=== PATIENT | female | born 1990 | race Caucasian/White ===

== ENCOUNTER 2019-07-18 12:38 | Emergency (ER) | payer SELFPAY ==
[2019-07-18 12:39] VITALS: BP 136/87; PULSE 99; RESP 18; TEMP 35.9; O2SAT 100; BMI 25.4
[2019-07-18 12:51] VITALS: BP 136/87; PULSE 99; RESP 18; TEMP 35.9; O2SAT 100
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
[2019-07-18 15:33] VITALS: BP 135/78; PULSE 98; RESP 17; O2SAT 97
== END 2019-07-18 15:34 | disposition home or self-care (01) ==
LOC: ED 14:00
PROVIDERS: Emergency Provider Emergency Medicine
DX: L02.414 Cutaneous abscess of left upper limb (principal); L03.114 Cellulitis of left upper limb; F17.200 Nicotine dependence, unspecified, uncomplicated
CPT/HCPCS: 10060; 99282

== ENCOUNTER 2019-11-25 02:23 | Emergency (ER) | payer MEDICAID, SELFPAY ==
[2019-09-21 11:10] VITALS: BMI 22.8
[2019-11-25 02:25] VITALS: BP 118/65; PULSE 72; RESP 16; TEMP 36.9; O2SAT 97; BMI 27.3
--- NOTE | 2019-11-25 02:33 | US_ITS ---
HISTORY: Bleeding. Estimated gestational age clinically 18 W-4 D. RG from prior clinical workup 04/23/2020. No comparison imaging. 38 images. Findings: Transabdominal imaging: The cervix is closed measuring over 3.8 cm. Placenta is posterior and fundal. The cervix and is well away from the internal cervical os. heart motion is detected by M-mode imaging at 141 bpm. Endovaginal imaging: The cervix is closed 3.5 cm at least. Chest US/Transvaginal w/Preg US IMPRESSION: Normal. SLIUP. anatomic survey not performed. Measurements for age not performed. Cervix is closed. at 0359 Reported and signed by: Rancho Rivera MD Electronically Signed: Rancho Rivera MD at 3:58 EDT Tel , Service support ,
[2019-11-25] MEDS: 0.9% Normal Saline 1,000 ML 150 ML IV (02:57)
[2019-11-25 03:01] LABS: Absolute Lymphocyte Count 2.77 X10^3/uL (0.83-4.51); Absolute Neutrophil Count 7.6 X10^3/uL (2.0-7.7); Basophil# 0.03 X10^3/uL; Basophil% 0.3 % (0-1); Eosinophil# 0.37 X10^3/uL; Eosinophils% 3.2 % (0-5); Hematocrit 35.4 % (37-47); Lymphocyte # 2.77 X10^3/ul (4.0); Lymphocyte % 24.1 % (19-41); Mean Corp Hgb Conc 33.9 g/dL (32-36); Mean Corpuscular Hgb 28.5 pg (27.0-32.0); Mean Corpuscular Volume 84.1 fL (81-99); Mean Platelet Vol. 10.6 fl (6.2-12.0); Monocyte# 0.69 X10^3/uL; NRBC Flagged by Analyzer 0 % (0-5); Neutrophil # 7.61 X10^3/uL (2.7-7.7); Neutrophil % 66.1 % (47-70); Platelet Count 255 K/mm3 (150-450); RBC Distribution Width CV 13.2 % (11.6-14.6); Red Blood Count 4.21 M/mm3 (4.2-5.4); White Blood Count 11.5 K/mm3 (4.4-11.0)
[2019-11-25 04:14] LABS: Color, Urine Yellow (Yellow); Glucose, Dipstick Normal (Normal); Ketone-Dipstick Negative (Negative); Leukocyte Esterase-Dipstick Negative /ul (Negative); Nitrite-Dipstick Negative (Negative); Occult Blood-Urine 10 /ul (Negative); Protein-Dipstick Negative (Negative); Specific Gravity, Urine 1.015 (1.002-1.030); Urine Bilirubin Dipstick Negative (Negative); Urine Clarity Clear (Clear); Urine Urobilinogen Normal (Normal); Urine pH 6.5 (5.0 - 8.0)
[2019-11-25 04:15] LABS: Bacteria 0 SEEN /hpf (None Seen); Mucous, Urine 0 SEEN /hpf (<or=2+); White Blood Cells 0 SEEN /hpf (0-5)
--- NOTE | 2019-11-25 04:19 | ED.VISSUMM ---
- ER Visit Summary Date of Service: 11/25/19 Chief Complaint: [Vaginal bleeding] History of Present Illness: The patient is a 29 F [presents with vaginal bleeding that started this evening. Patient says she woke up to use the restroom and noted that her there was a small amount of blood when she wiped. Patient and subsequently had another episode where there was more blood but no clots. Currently she states that she feels like things have slowed down and just has minimal spotting. She denies recent intercourse or vaginal trauma. Patient is 19 weeks . Patient is G2, P1. Patient has history of heroin abuse but has not used opiates in 60 days and she is currently at a treatment facility. Patient describes a mild pelvic pressure. She denies fever. She denies urinary symptoms.] Physical Examination: [HEENT-PERRLA, EOMI. Cranial nerves II through XII grossly intact. TMs clear. Mucous membranes moist. No adenopathy. Cardiovascular-regular rate and rhythm without murmur or ectopy Lungs-clear to auscultation, chest wall stable without crepitus or subcu emphysema Abdomen-normoactive bowel sounds, soft. Patient has some mild tenderness over the suprapubic region. There is no rebound, rigidity, or cranial signs. Extremities-intact ?4, normal range of motion, normal pulses, atraumatic] Test Results: [CBC with differential showed a white count of 11.5, hemoglobin 12, hematocrit 35, platelets 255. Urinalysis was unremarkable. Blood type is a positive. heart tones were 130. Pelvic ultrasound obtained showed heart tones of 141 with a single live intrauterine . Cervical loss was closed. Placenta was in the posterior fundal region.] Emergency Department Course and Treatment: [ Established on arrival.] Treatment Plan: [Case was discussed with Alicja Farrell who is on-call for Dr. Barbara Lui. Patient has follow-up appointment scheduled in 5 days she is to keep that. At this point patient looks well and no further treatment is indicated. Advised to return if worsening abdominal pain, persistent heavy bleeding, passing clots or tissue, or condition should worsen anyway.] Disposition: [Discharged home in stable condition] Impression: [Vaginal bleeding in second trimester] This note was generated with [employer] software. It may contain incorrect words, spelling, and punctuation that were not noted in review of the chart prior to signing ED Disposition - Plan for ED Patient: Referrals: Care Physician,No Primary [Primary Care Provider] -
[2019-11-25 04:22] LABS: Red Blood Cells-Urine 0-5 SEEN /hpf (0-5); Squamous Epithelial Cells - UA 0-5 SEEN /hpf (5-10)
--- NOTE | 2019-11-25 04:22 | ED.DEP ---
ED Disposition - Plan for ED Patient: Instructions: Bleeding During Early Referrals: Care Physician,No Primary [Primary Care Provider] - Barbara Lui MD [STAFF PHYSICIAN] - 11/29/19
[2019-11-25 04:29] VITALS: PULSE 84; RESP 16
== END 2019-11-25 04:35 | disposition home or self-care (01) ==
PROVIDERS: Emergency Provider Emergency Medicine
DX: O20.9 Hemorrhage in early pregnancy, unspecified (principal); O99.332 Smoking (tobacco) complicating pregnancy, second trimester; Z72.0 Tobacco use; Z3A.19 19 weeks gestation of pregnancy
CPT/HCPCS: 76817; 81001; 85025; 86900; 86901; 96360; 96361; 99285; J7030

== ENCOUNTER 2020-01-14 20:00 | Emergency (ER) | payer MEDICAID, SELFPAY ==
[2020-01-14 20:02] VITALS: BP 146/95; PULSE 108; RESP 18; TEMP 36.8; O2SAT 98; BMI 25.4
[2020-01-14 20:04] VITALS: BP 146/96; PULSE 108; RESP 18; TEMP 36.8; O2SAT 98
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
[2020-01-14] MEDS: Acetaminophen 325 MG Tablet 650 MG PO (20:43)
[2020-01-14 21:00] VITALS: BP 133/92; PULSE 103; RESP 19; O2SAT 97
[2020-01-14 21:35] VITALS: BP 135/97; PULSE 101; RESP 18; O2SAT 99
== END 2020-01-14 21:36 | disposition home or self-care (01) ==
PROVIDERS: Emergency Provider Emergency Medicine
DX: O9A.212 Injury, poisoning and certain other consequences of external causes complicating pregnancy, second trimester (principal); R06.81 Apnea, not elsewhere classified; T40.2X1A Poisoning by other opioids, accidental (unintentional), initial encounter; S09.90XA Unspecified injury of head, initial encounter; W19.XXXA Unspecified fall, initial encounter; Y93.9 Activity, unspecified; Y92.9 Unspecified place or not applicable; Y99.9 Unspecified external cause status; O99.332 Smoking (tobacco) complicating pregnancy, second trimester; F17.200 Nicotine dependence, unspecified, uncomplicated; Z3A.00 Weeks of gestation of pregnancy not specified
CPT/HCPCS: 99284

== ENCOUNTER 2020-04-07 06:00 | Inpatient (IN) | payer MEDICAID, SELFPAY ==
[2020-04-07] VITALS (20 sets, daily range): BP systolic 100–134; BP diastolic 62–92; PULSE 58–114; RESP 16–20; TEMP 36–37.2; O2SAT 96–100; BMI 28.1
[2020-04-07 05:58] LABS: ROM Internal Control Test YES-OK TO RESULT pt. (Internal QC); ROM Patient Test POSITIVE (Negative)
[2020-04-07] MEDS: Lactated Ringers 500 ML 999 ML IV (07:09)
[2020-04-07 07:21] LABS: Absolute Lymphocyte Count 3.55 X10^3/uL (0.83-4.51); Absolute Neutrophil Count 14.4 X10^3/uL (2.0-7.7); Basophil# 0.03 X10^3/uL; Basophil% 0.2 % (0-1); Eosinophil# 0.13 X10^3/uL; Eosinophils% 0.7 % (0-5); Hematocrit 36.9 % (37-47); Hemoglobin 12.2 g/dL (12.0-15.0); Lymphocyte # 3.55 X10^3/ul (4.0); Lymphocyte % 18.1 % (19-41); Mean Corp Hgb Conc 33.1 g/dL (32-36); Mean Corpuscular Hgb 27.5 pg (27.0-32.0); Mean Corpuscular Volume 83.1 fL (81-99); Mean Platelet Vol. 10.4 fl (6.2-12.0); Monocyte# 1.38 X10^3/uL; Monocyte% 7.1 % (0-10); NRBC Flagged by Analyzer 0 % (0-5); Neutrophil # 14.39 X10^3/uL (2.7-7.7); Neutrophil % 73.4 % (47-70); Platelet Count 334 K/mm3 (150-450); RBC Distribution Width CV 13.3 % (11.6-14.6); Red Blood Count 4.44 M/mm3 (4.2-5.4); White Blood Count 19.6 K/mm3 (4.4-11.0)
[2020-04-07 07:33] LABS: Color, Urine Yellow (Yellow); Glucose, Dipstick Normal (Normal); Ketone-Dipstick Negative (Negative); Leukocyte Esterase-Dipstick 25 /ul (Negative); Nitrite-Dipstick Negative (Negative); Occult Blood-Urine Negative /ul (Negative); Protein-Dipstick Negative (Negative); Specific Gravity, Urine 1.015 (1.002-1.030); Urine Bilirubin Dipstick Negative (Negative); Urine Clarity Cloudy (Clear); Urine Urobilinogen Normal (Normal)
[2020-04-07] MEDS: Lactated Ringers 1,000 ML 999 ML IV (07:40)
[2020-04-07 07:49] LABS: Amphetamine Urine VISTA NEGATIVE (<1000 ng/mL); Barbiturate Urine VISTA NEGATIVE (< 200 ng/mL); Benzodiazepine Urine VISTA NEGATIVE (< 200 ng/mL); Cocaine Urine VISTA NEGATIVE (< 300 ng/mL); Ecstacy Urine VISTA NEGATIVE (< 500 ng/mL); Methadone Urine VISTA NEGATIVE (< 300 ng/mL); PCP Urine VISTA NEGATIVE (< 25 ng/mL); THC Urine VISTA NEGATIVE (< 50 ng/mL); Vista UDS pH Range 8
[2020-04-07 07:53] LABS: ALB/GLOB Ratio 0.6 RATIO (0.9-2.4); AST(SGOT) 43 U/L (15-37); Alanine Aminotransfer ALT/SGPT 53 U/L (13-56); Albumin, Serum 2.5 g/dL (3.2-5.0); Alkaline Phosphatase 182 U/L (45-117); Anion Gap 6 (5-15); BUN 11 mg/dL (7-18); BUN/Creat Ratio 17.7 RATIO (10-20); Calcium,Total 8.7 mg/dL (8.5-10.1); Chloride 106 mmol/L (98-107); Creatinine, Serum 0.62 mg/dL (0.55-1.02); EST Glomerular Filtration Rate 121 mL/min (>60); Est Glom Filt Rate - Afr Amer 147 mL/min (>60); Estimated Creatinine Clearance 136.27 ml/min; Globulin 4.3 g/dL (2.2-4.2); Glucose 84 mg/dL (74-106); Potassium 3.9 mmol/L (3.5-5.1); Protein, Total 6.8 g/dL (6.4-8.2); Sodium Level 135 mmol/L (136-145)
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
[2020-04-07] MEDS: Sodium Citrate/Citric Acid 30 ML UDC PO (08:37)
--- NOTE | 2020-04-07 08:40 | PCM.OPRPT ---
Delivery Classification: AWA Final RG: 04/23/20 Final RG Source: US <20 weeks Gestational age: 37 Weeks and 5 Days check airman: Unique Valadez Type of Anesthesia:: Spinal Special Medications: none Implants Used: none Date of Procedure: 04/07/20 - start 9:16 am end time 0945 Pre-Operative Diagnosis: term gestation, maternal drug abuse in , breech presentation, SROM, labor Post-Operative Diagnosis: same, live female (delivered @ 0919 04/07/20) Indications: SROM, Labor , Breech presentation Indications for : Breech Description of Procedure: Pt presented to L&D c/o SROM at 0000 on 04/07/20- pt progressed to 5cm and at that time confirmed breech presentation. pt informed of need for primary cs- agrees After informed consent was obtained the patient was taken the operating room she was given spinal anesthesia. She was then placed in the supine position. She was prepped and draped in the normal sterile fashion. Anesthesia was found to be adequate. At this time a Pfannenstiel skin incision was made with a knife was carried down to the underlying layer of the fascia. The fascial incision was then extended laterally using curved Taylor scissor. Tensions was then turned to the superior aspect of the fascial edge was grasped with 2 straight Darrion clamps tented up and the rectus muscle dissected off sharply using curved Taylor scissor. Attention was then turned to the inferior aspect where again Gonzales clamps were placed in the rectus muscles were tented up and the fascia was dissected off sharply using the curved Taylor scissor. Rectus muscles were then in the midline bluntly and peritoneum was entered bluntly. Gentle opposing traction was placed. At this time the vesicouterine peritoneum was identified. Scalpel was used to make a uterine incision in a low transverse fashion. The uterus was then entered bluntly gentle opposing traction was placed to extend this incision. meconium noted. Infant's buttocks was brought to the uterine incision was delivered atraumatically followed by the rest of infant body. Cord was clamped and cut infant was handed to the waiting nursery team. The Placenta was removed from the uterus. The uterus was then removed from the abdominal cavity. The uterus was cleared of all clots and debris using a lap. At this time the uterine incision was reapproximated using #1 Vicryl in a running locked fashion. followed by multiple figure of eight sutures to achieve hemostasis. Hemostasis was appreciated. Posterior cul-de-sac was then cleared of all clots and debris. Uterus was placed back in the abdominal cavity. Gutters were cleared of all clots and debris. Uterine incision was reevaluated and noted to be of excellent hemostasis. tanisha placed. At this time the peritoneum was grasped with Kellys reapproximated using #2 Vicryl suture in a running fashion. Fascia was then reapproximated using #1 Vicryl in a running fashion. Subcu layer was reapproximated with #2 0 plain gut suture in an interrupted fashion. Subcu layer was closed using 4-0 Monocryl in a subcu fashion. Dry sterile dressing was applied. Instrument lap needle count correct ?2. Anticipated normal postoperative course. Amniotic Membrane Rupture Type: Spontaneous Amniotic Fluid Description: Moderate meconium Placenta Disposition: [facility] Specimen(s) sent to pathology: none Drain: Farr to straight drain Fluids Replaced: 1000 Cord Entanglement: None Cord Vessel Description: 3 Vessels Esitmated Blood Loss (ml): 600 Infant Gender: Female (1 minute): 9 (5 minute): 9 Delayed cord clamping: No Antibiotic Given: Ancef 2 grams IV x1, Zithromax 500 mg/5 mL X1 Pt instructed on risks of surgery: Bleeding, Anesthesia Risks, Infection, Injury to surrounding structure(s) including bowel and bladder Complications: None - Admit VTE Documentation VTE Present on Admission: Yes VTE Mechan Device Prophylaxis: SCD's VTE Pharm Prophylaxis ordered?: No
[2020-04-07] MEDS: Cefazolin 2 GM in 0.9% Normal Saline 100 ML IV (08:41)
[2020-04-07 09:10] LABS: Group B Strep DNA By PCR Negative (Negative); Internal Control PASS; Probe Check PASS; Specimen Processing Control PASS
[2020-04-07] MEDS: Oxytocin 30 units/NS 500 ml 30 UNITS/500 ML IV.SOLN 167 UNITS IV (10:00)
--- NOTE | 2020-04-07 10:00 | NURSING ---
Pt had originally stated that she would like to breastfeed baby. After delivery pt stated she had thought about it and decided that with her drug use and Hep C she thinks it would be best to bottle feed. New entry placed by this RN for plans for feeding baby to bottle feed instead of breastfeed.
--- NOTE | 2020-04-07 10:57 | PN_ITS ---
Patient Problems: Active and Suspected Problems Heroin abuse affecting (Acute) Marijuana use (Acute) Methamphetamine abuse (Acute) Active labor at term (Acute) SROM (spontaneous rupture of membranes) (Acute) Breech presentation (Acute) History of traumatic brain injury (Acute) Custody issue (Acute) History of depression (Acute) Hepatitis C (Acute) Social isolation (Acute) History of pelvic fracture (Acute) Vitals/I&O's: Vital Signs Temp Pulse Resp BP Pulse Ox 97.9 F 85 16 125/75 H 98 04/07/20 10:30 04/07/20 10:30 04/07/20 10:30 04/07/20 10:30 04/07/20 10:30 Oxygen Delivery Method Room Air Weight: 83.915 kg Body Mass Index (BMI) 28.1 Intake and Output for Last 24 Hours 04/05/20 04/06/20 04/07/20 23:59 23:59 23:59 Intake Total 1500 / 1500 Output Total 150 / 150 Balance 1350 / 1350 Microbiology Past 72 Hours 04/07/20 06:50 Mucosa - Nose SARS-CoV-2 Antigen (Rapid) - Final Laboratory Results 04/07/20 05:15: Vag Amniotic Fld Detect POSITIVE H 04/07/20 06:50: Group B Strep DNA Negative, Specimen Comment Not Reportable 04/07/20 07:10: WBC 19.6 H, RBC 4.44, Hgb 12.2, Hct 36.9 L, MCV 83.1, MCH 27.5, MCHC 33.1, RDW Std Deviation 40.0, RDW Coeff of Eugenie 13.3, Plt Count 334, MPV 10.4, Immature Gran % (Auto) 0.500, Neut % (Auto) 73.4 H, Lymph % (Auto) 18.1 L, [place] % (Auto) 7.1, Eos % (Auto) 0.7, Baso % (Auto) 0.2, Absolute Neuts (auto) 14.4 H, Absolute Lymphs (auto) 3.55, Nucleated RBC % 0 04/07/20 07:10: Blood Type A POSITIVE, Antibody Screen NEGATIVE 04/07/20 07:10: Sodium 135 L, Potassium 3.9, Chloride 106, Carbon Dioxide 23.0, Anion Gap 6, BUN 11, Creatinine 0.62, Estim Creat Clear Calc 136.27, Est GFR (MDRD) Af Amer 147, Est GFR (MDRD) Non-Af 121, BUN/Creatinine Ratio 17.7, Glucose 84, Calcium 8.7, Total Bilirubin 0.30, AST 43 H, ALT 53, Alkaline Phosphatase 182 H, Total Protein 6.8, Albumin 2.5 L, Globulin 4.3 H, Albumin/Globulin Ratio 0.6 L 04/07/20 07:10: HCV RNA Quant (PCR) Pending 04/07/20 07:15: Urine Color Yellow, Urine Clarity Cloudy, Urine pH 9.0, Ur Specific [place] 1.015, Urine Protein Negative, Urine Glucose (UA) Normal, Urine Ketones Negative, Urine Occult Blood Negative, Urine Nitrite Negative, Urine Bilirubin Negative, Urine Urobilinogen Normal, Ur Leukocyte Esterase 25 H 04/07/20 07:15: Urine Opiates Screen NEGATIVE, Urine Methadone Screen NEGATIVE, Ur Barbiturates Screen NEGATIVE, Ur Phencyclidine Scrn NEGATIVE, Ur Amphetamines Screen NEGATIVE, U Methamphetamin-MDMA NEGATIVE, U Benzodiazepines Scrn NEGATIVE, Urine Cocaine Screen NEGATIVE, U Cannabinoids Screen NEGATIVE, Ur Drug Screen Comment Current Medications Acetaminophen (Acetaminophen 500 Mg Tablet) 1,000 mg PO Q6 STEFANY Bisacodyl (Bisacodyl 10 Mg Suppository) 10 mg RECTAL UD PRN PRN Reason: If no BM Enoxaparin Sodium (Enoxaparin 40 Mg/0.4 Ml Syringe) 40 mg SC DAILY [facility] Hydrocortisone (Hydrocortisone 2.5% Crm) 1 applic TOPICAL TID PRN PRN; Protocol PRN Reason: Discomfort Lactated Ringer's () 1,000 mls @ 100 mls/hr IV .Q10H [facility] Oxytocin/Sodium Chloride () 30 units in 500 mls @ 167 mls/hr IV .Q3H [facility] Stop: 04/07/20 12:44 Ibuprofen (Ibuprofen 600 Mg Tablet) 600 mg PO Q6 [facility] Ketorolac Tromethamine (Ketorolac 30 Mg/Ml Syringe) 30 mg IV Q6H [facility] Stop: 04/08/20 03:46 Methylergonovine Maleate (Methylergonovine 0.2 Mg/Ml Ampul) 0.2 mg IM X1 PRN PRN Reason: Uterine Atony Ondansetron HCl (Ondansetron 4 Mg/2 Ml Vial) 4 mg IV Q4H PRN PRN PRN Reason: Nausea Prochlorperazine Edisylate (Prochlorperazine 10 Mg/2 Ml Vial) 10 mg IV Q6H PRN PRN PRN Reason: NAUSEA Senna/Docusate Sodium (Senna/Docusate Sodium 1 Tablet) 1 - 2 tablet PO DAILY STEF[facility] Simethicone (Simethicone 80 Mg Tablet) 80 mg PO PCHS PRN PRN Reason: Indigestion/stomach pain Sodium Chloride (0.9% Saline Lock 10 Ml Syringe) 5 - 15 ml IV UD PRN PRN Reason: SALINE FLUSH STROKE Vital Signs/Narrative: Vital Signs Temp Pulse Resp BP Pulse Ox 04/07/20 10:30 97.9 F 85 16 125/75 H 98 04/07/20 10:15 96.8 F L 77 16 113/69 99 04/07/20 10:00 96.8 F L 85 16 113/74 99 04/07/20 08:26 98.0 F 74 16 120/80 99 04/07/20 08:03 74 120/80 04/07/20 08:02 98.0 F 99 Medical Necessity - Tobacco Use Smoking Status: Current every day smoker Assessment/Plan All Active Problems Transaminitis (Acute) Substance abuse (Acute) (Acute) Subchorionic hematoma in first trimester (Acute) Heroin abuse affecting (Acute) Marijuana use (Acute) Methamphetamine abuse (Acute) Active labor at term (Acute) SROM (spontaneous rupture of membranes) (Acute) Breech presentation (Acute) History of traumatic brain injury (Acute) Custody issue (Acute) History of depression (Acute) Hepatitis C (Acute) Social isolation (Acute) History of pelvic fracture (Acute) Cellulitis (Acute)
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
[2020-04-07] MEDS: Senna/Docusate Sodium 1 Tablet PO (12:22)
[2020-04-07] MEDS: Acetaminophen 500 MG Tablet 1000 MG PO ×3 (12:23→23:40)
[2020-04-07] MEDS: Lactated Ringers 1,000 ML 100 ML IV (13:00)
--- NOTE | 2020-04-07 13:44 | NURSING ---
Pt very painful, called Christelle WASHINGTON to update that pt did not receive duramorph during and the only pain meds ordered are Tylenol and toradol. This RN informed CNM that withdrawl assessments are done every hour and pt cannot receive subutex until score is greater than 8, pt currently at 5. The plan at this time is to do next assessment at 1415 and if not able to receive subutex at that time then will get pain meds ordered.
--- NOTE | 2020-04-07 14:07 | NURSING ---
Alcira WASHINGTON called back in after talking with Dr Espinoza. Plan at this time is to start pt on Oxyir 5-10 mg Q4H and get her pain under control and then begin her on subutex tomorrow once pain is better controlled. Plan discussed with pt and pt okay with plan.
[2020-04-07] MEDS: oxyCODONE 5 MG Tablet PO ×3 (14:11→23:40)
--- NOTE | 2020-04-07 14:46 | NURSING ---
call placed to [place], hospitalist. Informed that OB's started pt on pain medicine for first 24 hours since pts pain is uncontrolled will start subutex tomorrow once pain more controlled. Ok to hold withdrawl assessments (COWS and CINA) until tomorrow once planning to start Subutex.
[2020-04-07] MEDS: Ketorolac 30 MG/ML Syringe IV ×2 (16:00→21:55)
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
[2020-04-07] MEDS: 0.9% Saline Lock 10 ML Syringe IV (21:55)
[2020-04-07] MEDS: Enoxaparin 40 MG/0.4 ML Syringe SC (22:04)
[2020-04-08] VITALS (9 sets, daily range): BP systolic 119–132; BP diastolic 66–78; PULSE 58–95; RESP 16–18; TEMP 35.5–36.7; O2SAT 98–100
--- NOTE | 2020-04-08 03:38 | NURSING ---
Bedside report received from Dl Martinez RN. This RN will assume care of this mother and at this time.
[2020-04-08] MEDS: Ketorolac 30 MG/ML Syringe IV (03:44)
[2020-04-08] MEDS: 0.9% Saline Lock 10 ML Syringe IV ×2 (03:45→09:41)
[2020-04-08] MEDS: Acetaminophen 500 MG Tablet 1000 MG PO ×4 (05:34→23:49)
--- NOTE | 2020-04-08 05:48 | NURSING ---
2 RNs and lab attempted to draw CBC. Unable to draw blood for CBC at this time.
[2020-04-08 09:37] LABS: Hematocrit 34.2 % (37-47); Hemoglobin 10.9 g/dL (12.0-15.0); Mean Corp Hgb Conc 31.9 g/dL (32-36); Mean Corpuscular Hgb 27.1 pg (27.0-32.0); Mean Corpuscular Volume 85.1 fL (81-99); Mean Platelet Vol. 10.2 fl (6.2-12.0); Platelet Count 282 K/mm3 (150-450); RBC Distribution Width CV 13.4 % (11.6-14.6); Red Blood Count 4.02 M/mm3 (4.2-5.4); White Blood Count 24.1 K/mm3 (4.4-11.0)
[2020-04-08] MEDS: Ibuprofen 600 MG Tablet PO ×3 (10:14→21:44)
[2020-04-08] MEDS: Buprenorphine HCl 2 MG TAB.SUBL SL ×2 (10:15→18:17)
[2020-04-08] MEDS: Enoxaparin 40 MG/0.4 ML Syringe SC (10:15)
[2020-04-08] MEDS: Senna/Docusate Sodium 1 Tablet PO (10:15)
--- NOTE | 2020-04-08 10:57 | PN_ITS ---
Patient Problems: Active and Suspected Problems Transaminitis (Acute) Substance abuse (Acute) (Acute) Subchorionic hematoma in first trimester (Acute) Heroin abuse affecting (Acute) Active labor at term (Acute) SROM (spontaneous rupture of membranes) (Acute) Breech presentation (Acute) Social isolation (Acute) Cellulitis (Acute) Reason for Visit: Chronic opiate dependence at risk for withdrawal Status post section on 04/07/2020 Subjective: The patient is a 29 year old who is 2 para 1 currently at 37 weeks of gestation who presented to the labor and delivery department with spontaneous rupture of membrane. Patient's baby was found to be in breech. Decision was made for patient to undergo emergency . Patient has history of polysubstance abuse with opioid and methamphetamine use. Patient last heroin use was a day prior to her presentation. The hospitalist service was consulted to assist with management of patient opioid dependence 04/08/2020; patient seen denies any leg pain no leg cramps. No vomiting. Objective: GENERAL: cooperative HEENT: Atraumatic; EYES; Anicteric, Normal Conjunctiva NECK; supple, normal thyroid, RESPIRATORY: Diminished to auscultation CARDIOVASCULAR: Regular S1 S2, GI: soft, normoactive bowel sounds, EXTREMITIES: No edema, no clubbing, MUSCULOSKELETAL: no muscle waisting NEURO: Awake; no lateralizing signs. SKIN: No Rash PSYCH; Flat affect Vitals/I&O's: Vital Signs Temp Pulse Resp BP Pulse Ox 97.0 F L 59 L 16 121/71 H 98 04/08/20 08:21 04/08/20 08:21 04/08/20 08:21 04/08/20 08:21 04/08/20 08:21 Oxygen Delivery Method Room Air Weight: 83.915 kg Body Mass Index (BMI) 28.1 Intake and Output for Last 24 Hours 04/06/20 04/07/20 04/08/20 23:59 23:59 23:59 Intake Total 3790 / 3790 Output Total 525 / 525 400 / 400 Balance 3265 / 3265 -400 / -400 Microbiology Past 72 Hours 04/07/20 06:50 Mucosa - Nose SARS-CoV-2 Antigen (Rapid) - Final Laboratory Results 04/08/20 09:30: WBC 24.1 H, RBC 4.02 L, Hgb 10.9 L, Hct 34.2 L, MCV 85.1, MCH 27.1, MCHC 31.9 L, RDW Std Deviation 42.0, RDW Coeff of Eugenie 13.4, Plt Count 282, MPV 10.2 Current Medications Acetaminophen (Acetaminophen 500 Mg Tablet) 1,000 mg PO Q6 [facility] Last Admin: 04/08/20 05:34 Dose: 1,000 mg Documented by: Bisacodyl (Bisacodyl 10 Mg Suppository) 10 mg RECTAL UD PRN PRN Reason: If no BM Buprenorphine HCl (Buprenorphine Hcl 2 Mg Tab.Subl) 4 mg SL Q8H [facility]; Taper Stop: 04/11/20 10:29 Last Admin: 04/08/20 10:15 Dose: 4 mg Documented by: Clonidine (Clonidine Hcl 0.1 Mg Tablet) 0.1 mg PO Q8H PRN PRN PRN Reason: RESTLESSNESS Dicyclomine HCl (Dicyclomine 10 Mg Capsule) 20 mg PO Q6H PRN PRN PRN Reason: Abdominal Discomfort Enoxaparin Sodium (Enoxaparin 40 Mg/0.4 Ml Syringe) 40 mg SC DAILY [facility] Last Admin: 04/08/20 10:15 Dose: 40 mg Documented by: Gabapentin (Gabapentin 300 Mg Capsule) 300 mg PO Q8H PRN PRN PRN Reason: moderate to severe anxiety Hydrocortisone (Hydrocortisone 2.5% Crm) 1 applic TOPICAL TID PRN PRN; Protocol PRN Reason: Discomfort Hydroxyzine Pamoate (Hydroxyzine Melinda 25 Mg Capsule) 50 mg PO Q6H PRN PRN PRN Reason: mild anxiety Ibuprofen (Ibuprofen 600 Mg Tablet) 600 mg PO Q6H [facility] Last Admin: 04/08/20 10:14 Dose: 600 mg Documented by: Loperamide HCl (Loperamide 2 Mg Capsule) 2 mg PO Q4H PRN PRN PRN Reason: LOOSE STOOLS Methocarbamol (Methocarbamol 750 Mg Tablet) 1,500 mg PO Q6H PRN PRN PRN Reason: MUSCLE SPASM Methylergonovine Maleate (Methylergonovine 0.2 Mg/Ml Ampul) 0.2 mg IM X1 PRN PRN Reason: Uterine Atony Nicotine (Nicotine 21 Mg Patch) 21 mg TD DAILY [facility] Last Admin: 04/08/20 10:16 Dose: Not Given Documented by: Ondansetron HCl (Ondansetron 4 Mg/2 Ml Vial) 4 mg IV Q4H PRN PRN PRN Reason: Nausea Ondansetron HCl (Ondansetron 8 Mg Tablet) 8 mg PO Q8H PRN PRN PRN Reason: NAUSEA Oxycodone HCl (Oxycodone 5 Mg Tablet) 5 - 10 mg PO Q4H PRN PRN PRN Reason: Pain Score 6-10 Last Admin: 04/07/20 23:40 Dose: 10 mg Documented by: Prochlorperazine Edisylate (Prochlorperazine 10 Mg/2 Ml Vial) 10 mg IV Q6H PRN PRN PRN Reason: NAUSEA Senna/Docusate Sodium (Senna/Docusate Sodium 1 Tablet) 1 - 2 tablet PO DAILY [facility] Last Admin: 04/08/20 10:15 Dose: 1 tablet Documented by: Simethicone (Simethicone 80 Mg Tablet) 80 mg PO PCHS PRN PRN Reason: Indigestion/stomach pain Last Admin: 04/07/20 19:00 Dose: 80 mg Documented by: Sodium Chloride (0.9% Saline Lock 10 Ml Syringe) 5 - 15 ml IV UD PRN PRN Reason: SALINE FLUSH Last Admin: 04/08/20 09:41 Dose: 10 ml Documented by: Trazodone HCl (Trazodone 100 Mg Tablet) 100 mg PO QHS PRN PRN PRN Reason: INSOMNIA STROKE Vital Signs/Narrative: Vital Signs Temp Pulse Resp BP BP Pulse Ox 04/08/20 08:21 97.0 F L 59 L 16 121/71 H 98 04/08/20 08:20 97.0 F L 04/08/20 08:19 59 L 121/71 H Medical Necessity - Tobacco Use Smoking Status: Current every day smoker Assessment/Plan All Active Problems Transaminitis (Acute) Substance abuse (Acute) (Acute) Subchorionic hematoma in first trimester (Acute) Heroin abuse affecting (Acute) Active labor at term (Acute) SROM (spontaneous rupture of membranes) (Acute) Breech presentation (Acute) Social isolation (Acute) Cellulitis (Acute) The patient is a 29 year old who is 2 para 1 currently at 37 weeks of gestation who presented to the labor and delivery department with spontaneous rupture of membrane. Patient's baby was found to be in breech. Decision was made for patient to undergo emergency . Patient has history of polysubstance abuse with opioid and methamphetamine use. Patient last heroin use was a day prior to her presentation. The hospitalist service was consulted to assist with management of patient opioid dependence 1. Status post section ?presented to the labor and delivery department with spontaneous rupture of membrane. Patient's baby was found to be in breech. Decision was made for patient to undergo emergency 2. Chronic opiate dependence ?With significant risk for opioid withdrawal patient was placed on Subutex for medical stabilization in addition to other adjuvant therapy for symptomatic management - 04/08/2020; patient seen denies any leg pain no leg cramps. No vomiting. 3. Polysubstance abuse ?Including opioids and methamphetamine. Counseled on cessation 4. Chronic hep C ?Patient to follow-up with PCP for initiation of treatment following discharge 5. Tobacco dependence - Counseled on cessation, offered nicotine patch for tobacco cravings 6. DVT prophylaxis ?Deferred to primary service Inpatient E&M: 11163 Subs Hosp L2
--- NOTE | 2020-04-08 13:43 | PCM.PN.OB ---
Patient Problems: Active and Suspected Problems Transaminitis (Acute) Substance abuse (Acute) (Acute) Subchorionic hematoma in first trimester (Acute) Heroin abuse affecting (Acute) Active labor at term (Acute) SROM (spontaneous rupture of membranes) (Acute) Breech presentation (Acute) Social isolation (Acute) Cellulitis (Acute) Subjective: Doing well. Up and out of bed and ambulating. Taking PO without difficulty. Voiding and passing flatus. Pain controlled. Subutex dose this am and doing well. Denies any headache, visual changes, chest pain shortness of breath, or increased vaginal bleeding. - Physical Exam Vitals/I&O's: Vital Signs Temp Pulse Resp BP Pulse Ox 97.0 F L 59 L 16 121/71 H 98 04/08/20 08:21 04/08/20 08:21 04/08/20 08:21 04/08/20 08:21 04/08/20 08:21 Oxygen Delivery Method Room Air Weight: 185 lb Body Mass Index (BMI) 28.1 Intake and Output for Last 24 Hours 04/06/20 04/07/20 04/08/20 23:59 23:59 23:59 Intake Total 3790 / 3790 Output Total 525 / 525 400 / 400 Balance 3265 / 3265 -400 / -400 General: Alert, Oriented x3, Cooperative HEENT: Atraumatic, Normocephalic Neck: Trachea Midline Lungs: Clear to auscultation, Normal air movement, No rhonchi, No wheeze Cardiovascular: Regular rate, Regular Rhythm, No murmurs Abdomen: Bowel Sounds Present, Soft - Fundus firm 2 under U. Dressing intact, small amount of dry blood . Extremities: No edema Psych/Mental Status: Normal Affect, Appropriate Microbiology Past 72 Hours 04/07/20 06:50 Mucosa - Nose SARS-CoV-2 Antigen (Rapid) - Final Laboratory Results 04/08/20 09:30: WBC 24.1 H, RBC 4.02 L, Hgb 10.9 L, Hct 34.2 L, MCV 85.1, MCH 27.1, MCHC 31.9 L, RDW Std Deviation 42.0, RDW Coeff of Eugenie 13.4, Plt Count 282, MPV 10.2 Current Medications Acetaminophen (Acetaminophen 500 Mg Tablet) 1,000 mg PO Q6 [facility] Last Admin: 04/08/20 12:45 Dose: 1,000 mg Documented by: Bisacodyl (Bisacodyl 10 Mg Suppository) 10 mg RECTAL UD PRN PRN Reason: If no BM Buprenorphine HCl (Buprenorphine Hcl 2 Mg Tab.Subl) 4 mg SL Q8H [facility]; Taper Stop: 04/11/20 10:29 Last Admin: 04/08/20 10:15 Dose: 4 mg Documented by: Clonidine (Clonidine Hcl 0.1 Mg Tablet) 0.1 mg PO Q8H PRN PRN PRN Reason: RESTLESSNESS Dicyclomine HCl (Dicyclomine 10 Mg Capsule) 20 mg PO Q6H PRN PRN PRN Reason: Abdominal Discomfort Enoxaparin Sodium (Enoxaparin 40 Mg/0.4 Ml Syringe) 40 mg SC DAILY [facility] Last Admin: 04/08/20 10:15 Dose: 40 mg Documented by: Gabapentin (Gabapentin 300 Mg Capsule) 300 mg PO Q8H PRN PRN PRN Reason: moderate to severe anxiety Hydrocortisone (Hydrocortisone 2.5% Crm) 1 applic TOPICAL TID PRN PRN; Protocol PRN Reason: Discomfort Hydroxyzine Pamoate (Hydroxyzine Melinda 25 Mg Capsule) 50 mg PO Q6H PRN PRN PRN Reason: mild anxiety Ibuprofen (Ibuprofen 600 Mg Tablet) 600 mg PO Q6H [facility] Last Admin: 04/08/20 10:14 Dose: 600 mg Documented by: Loperamide HCl (Loperamide 2 Mg Capsule) 2 mg PO Q4H PRN PRN PRN Reason: LOOSE STOOLS Methocarbamol (Methocarbamol 750 Mg Tablet) 1,500 mg PO Q6H PRN PRN PRN Reason: MUSCLE SPASM Methylergonovine Maleate (Methylergonovine 0.2 Mg/Ml Ampul) 0.2 mg IM X1 PRN PRN Reason: Uterine Atony Nicotine (Nicotine 21 Mg Patch) 21 mg TD DAILY [facility] Last Admin: 04/08/20 10:16 Dose: Not Given Documented by: Ondansetron HCl (Ondansetron 4 Mg/2 Ml Vial) 4 mg IV Q4H PRN PRN PRN Reason: Nausea Ondansetron HCl (Ondansetron 8 Mg Tablet) 8 mg PO Q8H PRN PRN PRN Reason: NAUSEA Oxycodone HCl (Oxycodone 5 Mg Tablet) 5 - 10 mg PO Q4H PRN PRN PRN Reason: Pain Score 6-10 Last Admin: 04/07/20 23:40 Dose: 10 mg Documented by: Prochlorperazine Edisylate (Prochlorperazine 10 Mg/2 Ml Vial) 10 mg IV Q6H PRN PRN PRN Reason: NAUSEA Senna/Docusate Sodium (Senna/Docusate Sodium 1 Tablet) 1 - 2 tablet PO DAILY [facility] Last Admin: 04/08/20 10:15 Dose: 1 tablet Documented by: Simethicone (Simethicone 80 Mg Tablet) 80 mg PO PCHS PRN PRN Reason: Indigestion/stomach pain Last Admin: 04/07/20 19:00 Dose: 80 mg Documented by: Sodium Chloride (0.9% Saline Lock 10 Ml Syringe) 5 - 15 ml IV UD PRN PRN Reason: SALINE FLUSH Last Admin: 04/08/20 09:41 Dose: 10 ml Documented by: Trazodone HCl (Trazodone 100 Mg Tablet) 100 mg PO QHS PRN PRN PRN Reason: INSOMNIA Medical Necessity - Tobacco Use Smoking Status: Current every day smoker Assessment/Plan All Active Problems Transaminitis (Acute) Substance abuse (Acute) (Acute) Subchorionic hematoma in first trimester (Acute) Heroin abuse affecting (Acute) Active labor at term (Acute) SROM (spontaneous rupture of membranes) (Acute) Breech presentation (Acute) Social isolation (Acute) Cellulitis (Acute) A:POD #1 Primary Section Substance Abuse P: 1) Routine care 2) Subutex for withdrawal management, covered by medicine 3) Pain management 4) declines nicotine patch, leaving floor for smoking AMA. 5) Baby remains in room at this time. 6) Hgb stable.
[2020-04-09] VITALS (10 sets, daily range): BP systolic 109–132; BP diastolic 71–83; PULSE 56–96; RESP 16–18; TEMP 35.9–36.6; O2SAT 97–100
[2020-04-09] MEDS: Buprenorphine HCl 2 MG TAB.SUBL SL ×3 (02:18→18:41)
[2020-04-09] MEDS: Ibuprofen 600 MG Tablet PO ×4 (03:55→22:09)
[2020-04-09] MEDS: Acetaminophen 500 MG Tablet 1000 MG PO ×3 (05:50→18:40)
--- NOTE | 2020-04-09 07:38 | PCM.PN.OB ---
Patient Problems: Active and Suspected Problems Transaminitis (Acute) Substance abuse (Acute) (Acute) Subchorionic hematoma in first trimester (Acute) Heroin abuse affecting (Acute) Active labor at term (Acute) SROM (spontaneous rupture of membranes) (Acute) Breech presentation (Acute) Social isolation (Acute) Cellulitis (Acute) Subjective: Patient is doing well this morning. Pain well controlled. Denies lightheadedness, dizziness, chest pain, shortness of breath, leg pain. Lochia normal. Ambulating and voiding without difficulty. Passing gas. Tolerating regular diet without nausea or vomiting. - Physical Exam Vitals/I&O's: Vital Signs Temp Pulse Resp BP Pulse Ox 97.3 F L 96 18 132/83 H 99 04/09/20 02:20 04/09/20 02:20 04/09/20 02:20 04/09/20 02:20 04/08/20 14:14 Oxygen Delivery Method Room Air Weight: 185 lb Body Mass Index (BMI) 28.1 Intake and Output for Last 24 Hours 04/07/20 04/08/20 04/09/20 23:59 23:59 23:59 Intake Total 3790 / 3790 Output Total 525 / 525 400 / 400 Balance 3265 / 3265 -400 / -400 General: Alert, No apparent distress Abdomen: Soft, Non Tender, Non-Distended, - - dressing in place Extremities: No edema, No Calf Tenderness Skin: No rashes Neurological: Neuro grossly intact Psych/Mental Status: Normal Affect, Appropriate Microbiology Past 72 Hours 04/07/20 06:50 Mucosa - Nose SARS-CoV-2 Antigen (Rapid) - Final Laboratory Results 04/08/20 09:30: WBC 24.1 H, RBC 4.02 L, Hgb 10.9 L, Hct 34.2 L, MCV 85.1, MCH 27.1, MCHC 31.9 L, RDW Std Deviation 42.0, RDW Coeff of Eugenie 13.4, Plt Count 282, MPV 10.2 Current Medications Acetaminophen (Acetaminophen 500 Mg Tablet) 1,000 mg PO Q6 [facility] Last Admin: 04/09/20 05:50 Dose: 1,000 mg Documented by: Bisacodyl (Bisacodyl 10 Mg Suppository) 10 mg RECTAL UD PRN PRN Reason: If no BM Buprenorphine HCl (Buprenorphine Hcl 2 Mg Tab.Subl) 4 mg SL Q8H [facility]; Taper Stop: 04/11/20 10:29 Last Admin: 04/09/20 02:18 Dose: 4 mg Documented by: Clonidine (Clonidine Hcl 0.1 Mg Tablet) 0.1 mg PO Q8H PRN PRN PRN Reason: RESTLESSNESS Dicyclomine HCl (Dicyclomine 10 Mg Capsule) 20 mg PO Q6H PRN PRN PRN Reason: Abdominal Discomfort Enoxaparin Sodium (Enoxaparin 40 Mg/0.4 Ml Syringe) 40 mg SC DAILY [facility] Last Admin: 04/08/20 10:15 Dose: 40 mg Documented by: Gabapentin (Gabapentin 300 Mg Capsule) 300 mg PO Q8H PRN PRN PRN Reason: moderate to severe anxiety Hydrocortisone (Hydrocortisone 2.5% Crm) 1 applic TOPICAL TID PRN PRN; Protocol PRN Reason: Discomfort Hydroxyzine Pamoate (Hydroxyzine Melinda 25 Mg Capsule) 50 mg PO Q6H PRN PRN PRN Reason: mild anxiety Ibuprofen (Ibuprofen 600 Mg Tablet) 600 mg PO Q6H [facility] Last Admin: 04/09/20 03:55 Dose: 600 mg Documented by: Loperamide HCl (Loperamide 2 Mg Capsule) 2 mg PO Q4H PRN PRN PRN Reason: LOOSE STOOLS Methocarbamol (Methocarbamol 750 Mg Tablet) 1,500 mg PO Q6H PRN PRN PRN Reason: MUSCLE SPASM Methylergonovine Maleate (Methylergonovine 0.2 Mg/Ml Ampul) 0.2 mg IM X1 PRN PRN Reason: Uterine Atony Nicotine (Nicotine 21 Mg Patch) 21 mg TD DAILY [facility] Last Admin: 04/08/20 10:16 Dose: Not Given Documented by: Ondansetron HCl (Ondansetron 4 Mg/2 Ml Vial) 4 mg IV Q4H PRN PRN PRN Reason: Nausea Ondansetron HCl (Ondansetron 8 Mg Tablet) 8 mg PO Q8H PRN PRN PRN Reason: NAUSEA Oxycodone HCl (Oxycodone 5 Mg Tablet) 5 - 10 mg PO Q4H PRN PRN PRN Reason: Pain Score 6-10 Last Admin: 04/07/20 23:40 Dose: 10 mg Documented by: Prochlorperazine Edisylate (Prochlorperazine 10 Mg/2 Ml Vial) 10 mg IV Q6H PRN PRN PRN Reason: NAUSEA Senna/Docusate Sodium (Senna/Docusate Sodium 1 Tablet) 1 - 2 tablet PO DAILY [facility] Last Admin: 04/08/20 10:15 Dose: 1 tablet Documented by: Simethicone (Simethicone 80 Mg Tablet) 80 mg PO PCHS PRN PRN Reason: Indigestion/stomach pain Last Admin: 04/07/20 19:00 Dose: 80 mg Documented by: Sodium Chloride (0.9% Saline Lock 10 Ml Syringe) 5 - 15 ml IV UD PRN PRN Reason: SALINE FLUSH Last Admin: 04/08/20 09:41 Dose: 10 ml Documented by: Trazodone HCl (Trazodone 100 Mg Tablet) 100 mg PO QHS PRN PRN PRN Reason: INSOMNIA Medical Necessity - Tobacco Use Smoking Status: Current every day smoker Assessment/Plan All Active Problems Transaminitis (Acute) Substance abuse (Acute) (Acute) Subchorionic hematoma in first trimester (Acute) Heroin abuse affecting (Acute) Active labor at term (Acute) SROM (spontaneous rupture of membranes) (Acute) Breech presentation (Acute) Social isolation (Acute) Cellulitis (Acute) POD#2 s/p PLTCS for SROM and breech presentation - Pain well controlled - Baby in room currently - VSS. Pt denies pre e symptoms - Appreciate medicine assistance with Subutex management - Dispo: Routine PO care
[2020-04-09] MEDS: Senna/Docusate Sodium 1 Tablet PO (10:11)
[2020-04-09] MEDS: Enoxaparin 40 MG/0.4 ML Syringe SC (11:45)
[2020-04-09 20:07] LABS: HCV Quant. RNA PCR 338000 IU/mL (.)
[2020-04-09 20:18] LABS: HCV log 10 5.529 (.)
[2020-04-10] MEDS: Acetaminophen 500 MG Tablet 1000 MG PO ×4 (00:15→18:55)
[2020-04-10 00:17] VITALS: BP 117/79; PULSE 66; RESP 14; TEMP 36.6; O2SAT 97
[2020-04-10] MEDS: Buprenorphine HCl 2 MG TAB.SUBL SL ×3 (02:42→22:43)
[2020-04-10] MEDS: Ibuprofen 600 MG Tablet PO ×4 (05:01→22:42)
[2020-04-10 05:03] VITALS: BP 135/74; PULSE 77; RESP 16; TEMP 36.7; O2SAT 98
--- NOTE | 2020-04-10 08:17 | PN.OBGYN_ITS ---
Patient Problems: Active and Suspected Problems Transaminitis (Acute) Substance abuse (Acute) (Acute) Subchorionic hematoma in first trimester (Acute) Heroin abuse affecting (Acute) Active labor at term (Acute) SROM (spontaneous rupture of membranes) (Acute) Breech presentation (Acute) Social isolation (Acute) Cellulitis (Acute) Subjective: Patient seen at bedside, doing well. Patient reports good pain control. Mild lochia. Bottlefeeding. Patient reports no symptoms of withdrawal. She states that she has family that is going to help her and her boyfriend get out of [place] and remain sober. Patient currently on Suboxone initiated by medicine service. - Physical Exam Vitals/I&O's: Vital Signs Temp Pulse Resp BP Pulse Ox 98.0 F 77 16 135/74 H 98 04/10/20 05:03 04/10/20 05:03 04/10/20 05:03 04/10/20 05:03 04/10/20 05:03 Oxygen Delivery Method Room Air Weight: 83.915 kg Body Mass Index (BMI) 28.1 Intake and Output for Last 24 Hours 04/08/20 04/09/20 04/10/20 23:59 23:59 23:59 Output Total 400 / 400 Balance -400 / -400 General: Alert, Oriented x3 Abdomen: Soft, Non-Distended, Passing Flatus, - - dressing dry and intact. fundus firm Extremities: No Calf Tenderness Musculoskeletal: No Tenderness to Palpation of Joints or Extremities Microbiology Past 72 Hours 04/07/20 06:50 Mucosa - Nose SARS-CoV-2 Antigen (Rapid) - Final Laboratory Results 04/07/20 07:10: HCV RNA Quant (PCR) [id number], HCV RNA (PCR) IU log10 5.529, HCV RNA PCR Test Info Comment Current Medications Acetaminophen (Acetaminophen 500 Mg Tablet) 1,000 mg PO Q6 [facility] Last Admin: 04/10/20 06:01 Dose: 1,000 mg Documented by: Bisacodyl (Bisacodyl 10 Mg Suppository) 10 mg RECTAL UD PRN PRN Reason: If no BM Buprenorphine HCl (Buprenorphine Hcl 2 Mg Tab.Subl) 2 mg SL Q8H [facility]; Taper Stop: 04/11/20 10:29 Last Admin: 04/10/20 02:42 Dose: 2 mg Documented by: Clonidine (Clonidine Hcl 0.1 Mg Tablet) 0.1 mg PO Q8H PRN PRN PRN Reason: RESTLESSNESS Dicyclomine HCl (Dicyclomine 10 Mg Capsule) 20 mg PO Q6H PRN PRN PRN Reason: Abdominal Discomfort Enoxaparin Sodium (Enoxaparin 40 Mg/0.4 Ml Syringe) 40 mg SC DAILY [facility] Last Admin: 04/09/20 11:45 Dose: 40 mg Documented by: Gabapentin (Gabapentin 300 Mg Capsule) 300 mg PO Q8H PRN PRN PRN Reason: moderate to severe anxiety Hydrocortisone (Hydrocortisone 2.5% Crm) 1 applic TOPICAL TID PRN PRN; Protocol PRN Reason: Discomfort Hydroxyzine Pamoate (Hydroxyzine Melinda 25 Mg Capsule) 50 mg PO Q6H PRN PRN PRN Reason: mild anxiety Ibuprofen (Ibuprofen 600 Mg Tablet) 600 mg PO Q6H [facility] Last Admin: 04/10/20 05:01 Dose: 600 mg Documented by: Loperamide HCl (Loperamide 2 Mg Capsule) 2 mg PO Q4H PRN PRN PRN Reason: LOOSE STOOLS Methocarbamol (Methocarbamol 750 Mg Tablet) 1,500 mg PO Q6H PRN PRN PRN Reason: MUSCLE SPASM Methylergonovine Maleate (Methylergonovine 0.2 Mg/Ml Ampul) 0.2 mg IM X1 PRN PRN Reason: Uterine Atony Nicotine (Nicotine 21 Mg Patch) 21 mg TD DAILY [facility] Last Admin: 04/09/20 10:53 Dose: Not Given Documented by: Ondansetron HCl (Ondansetron 4 Mg/2 Ml Vial) 4 mg IV Q4H PRN PRN PRN Reason: Nausea Ondansetron HCl (Ondansetron 8 Mg Tablet) 8 mg PO Q8H PRN PRN PRN Reason: NAUSEA Oxycodone HCl (Oxycodone 5 Mg Tablet) 5 - 10 mg PO Q4H PRN PRN PRN Reason: Pain Score 6-10 Last Admin: 04/07/20 23:40 Dose: 10 mg Documented by: Prochlorperazine Edisylate (Prochlorperazine 10 Mg/2 Ml Vial) 10 mg IV Q6H PRN PRN PRN Reason: NAUSEA Senna/Docusate Sodium (Senna/Docusate Sodium 1 Tablet) 1 - 2 tablet PO DAILY [facility] Last Admin: 04/09/20 10:11 Dose: 2 tablet Documented by: Simethicone (Simethicone 80 Mg Tablet) 80 mg PO PCHS PRN PRN Reason: Indigestion/stomach pain Last Admin: 04/07/20 19:00 Dose: 80 mg Documented by: Sodium Chloride (0.9% Saline Lock 10 Ml Syringe) 5 - 15 ml IV UD PRN PRN Reason: SALINE FLUSH Last Admin: 04/08/20 09:41 Dose: 10 ml Documented by: Trazodone HCl (Trazodone 100 Mg Tablet) 100 mg PO QHS PRN PRN PRN Reason: INSOMNIA Medical Necessity - Tobacco Use Smoking Status: Current every day smoker Assessment/Plan All Active Problems Transaminitis (Acute) Substance abuse (Acute) (Acute) Subchorionic hematoma in first trimester (Acute) Heroin abuse affecting (Acute) Active labor at term (Acute) SROM (spontaneous rupture of membranes) (Acute) Breech presentation (Acute) Social isolation (Acute) Cellulitis (Acute) POD#3, s/p primary cs breech, polysubstance abuse 1) continue suboxone 2mg SL q 8hrs per medicine 2) SW to see patient today 3) anticipate dc to hotel status tomorrow 4) Will need outpatient program for poly substance abuse 5) medicine managing Suboxone 6) discussed motrin/tylenol for discharge pain 7) ambulation
[2020-04-10 08:45] VITALS: BP 122/77; PULSE 57; RESP 18; TEMP 35.8; O2SAT 97
[2020-04-10] MEDS: Senna/Docusate Sodium 1 Tablet PO (10:58)
[2020-04-10] MEDS: Enoxaparin 40 MG/0.4 ML Syringe SC (10:59)
[2020-04-10 12:00] VITALS: BP 124/69; PULSE 53; RESP 20; TEMP 36.2; O2SAT 98
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
[2020-04-10 16:00] VITALS: BP 121/70; PULSE 54; RESP 18; TEMP 36.4; O2SAT 99
--- NOTE | 2020-04-10 16:30 | CASEMGMT ---
Social Work Labor and Delivery Presented to mother of baby (MOB) room with release of information for [facility]. MOB agreeable to sign the form. Father of baby (FOB) sitting at MOB's bedside and asking MOB what MOB was signing. MOB informed FOB it's okay several times, and that form is to help MOB get in with treatment. FOB quiet, blunted affect noted. MOB more alert, constricted affect. Release of information signed. This travel writer called the treatment navigator at [facility], Nancy Briggs, and left message at [phone] to call this travel writer about referral. Plan: Social work to continue to follow and assist during hospitalization. Will be calling [facility] children services due to substance exposed infant in utero, and other risk factors. Plan to make a help me grow referral. Plan to make referral to [facility]/Treatment Navigator Plan to provide additional resources for depression/anxiety. -JOSE Anguiano, BUSINESS OFFICE MANAGER
[2020-04-10 20:06] VITALS: BP 131/78; PULSE 58; RESP 16; TEMP 36.6
[2020-04-11] MEDS: Acetaminophen 500 MG Tablet 1000 MG PO ×3 (00:25→13:51)
[2020-04-11 02:26] VITALS: BP 122/80; PULSE 67; RESP 16; TEMP 36.6
[2020-04-11] MEDS: Ibuprofen 600 MG Tablet PO ×2 (04:41→11:09)
[2020-04-11 08:00] VITALS: BP 114/82; PULSE 65; RESP 16; TEMP 36.1
--- NOTE | 2020-04-11 09:52 | PN.OBGYN_ITS ---
Patient Problems: Active and Suspected Problems Transaminitis (Acute) Substance abuse (Acute) (Acute) Subchorionic hematoma in first trimester (Acute) Heroin abuse affecting (Acute) Active labor at term (Acute) SROM (spontaneous rupture of membranes) (Acute) Breech presentation (Acute) Social isolation (Acute) Cellulitis (Acute) Subjective: Doing well per patient and nursing staff. Ambulating and taking p.o. without difficulty. Pain controlled. Voiding and passing flatus. Bottle feeding. [facility] Boyfriend and patient plan to live with her parents. Denies any withdrawal symptoms at this time, continues buprenorphine managed by medicine. - Physical Exam Vitals/I&O's: Vital Signs Temp Pulse Resp BP Pulse Ox 97 F L 65 16 114/82 H 99 04/11/20 08:00 04/11/20 08:00 04/11/20 08:00 04/11/20 08:00 04/10/20 16:00 Oxygen Delivery Method Room Air Weight: 185 lb Body Mass Index (BMI) 28.1 General: Alert, Oriented x3, Cooperative HEENT: Atraumatic, Normocephalic Neck: Trachea Midline Lungs: Clear to auscultation, Normal air movement, No rhonchi, No wheeze Cardiovascular: Regular rate, Regular Rhythm Abdomen: Bowel Sounds Present, Soft - fundus firm 2 below U. Dressing dry and intact, one small area of dried blood. Extremities: No edema - Sadie's negative bilaterally Psych/Mental Status: Normal Affect, Appropriate Microbiology Past 72 Hours 04/07/20 Unknown Genital vaginal Group B Streptococcus Culture - Final Group B Beta Streptococcus is not isolated. Current Medications Acetaminophen (Acetaminophen 500 Mg Tablet) 1,000 mg PO Q6 STEFANY Last Admin: 04/11/20 06:10 Dose: 1,000 mg Documented by: Bisacodyl (Bisacodyl 10 Mg Suppository) 10 mg RECTAL UD PRN PRN Reason: If no BM Buprenorphine HCl (Buprenorphine Hcl 2 Mg Tab.Subl) 2 mg SL Q12H STEFANY; Taper Stop: 04/11/20 10:29 Last Admin: 04/10/20 22:43 Dose: 2 mg Documented by: Clonidine (Clonidine Hcl 0.1 Mg Tablet) 0.1 mg PO Q8H PRN PRN PRN Reason: RESTLESSNESS Dicyclomine HCl (Dicyclomine 10 Mg Capsule) 20 mg PO Q6H PRN PRN PRN Reason: Abdominal Discomfort Enoxaparin Sodium (Enoxaparin 40 Mg/0.4 Ml Syringe) 40 mg SC DAILY [facility] Last Admin: 04/10/20 10:59 Dose: 40 mg Documented by: Gabapentin (Gabapentin 300 Mg Capsule) 300 mg PO Q8H PRN PRN PRN Reason: moderate to severe anxiety Hydrocortisone (Hydrocortisone 2.5% Crm) 1 applic TOPICAL TID PRN PRN; Protocol PRN Reason: Discomfort Hydroxyzine Pamoate (Hydroxyzine Melinda 25 Mg Capsule) 50 mg PO Q6H PRN PRN PRN Reason: mild anxiety Ibuprofen (Ibuprofen 600 Mg Tablet) 600 mg PO Q6H [facility] Loperamide HCl (Loperamide 2 Mg Capsule) 2 mg PO Q4H PRN PRN PRN Reason: LOOSE STOOLS Methocarbamol (Methocarbamol 750 Mg Tablet) 1,500 mg PO Q6H PRN PRN PRN Reason: MUSCLE SPASM Methylergonovine Maleate (Methylergonovine 0.2 Mg/Ml Ampul) 0.2 mg IM X1 PRN PRN Reason: Uterine Atony Nicotine (Nicotine 21 Mg Patch) 21 mg TD DAILY [facility] Last Admin: 04/10/20 16:58 Dose: 21 mg Documented by: Ondansetron HCl (Ondansetron 4 Mg/2 Ml Vial) 4 mg IV Q4H PRN PRN PRN Reason: Nausea Ondansetron HCl (Ondansetron 8 Mg Tablet) 8 mg PO Q8H PRN PRN PRN Reason: NAUSEA Oxycodone HCl (Oxycodone 5 Mg Tablet) 5 - 10 mg PO Q4H PRN PRN PRN Reason: Pain Score 6-10 Last Admin: 04/07/20 23:40 Dose: 10 mg Documented by: Prochlorperazine Edisylate (Prochlorperazine 10 Mg/2 Ml Vial) 10 mg IV Q6H PRN PRN PRN Reason: NAUSEA Senna/Docusate Sodium (Senna/Docusate Sodium 1 Tablet) 1 - 2 tablet PO DAILY [facility] Last Admin: 04/10/20 10:58 Dose: 2 tablet Documented by: Simethicone (Simethicone 80 Mg Tablet) 80 mg PO HS PRN PRN Reason: Indigestion/stomach pain Last Admin: 04/07/20 19:00 Dose: 80 mg Documented by: Sodium Chloride (0.9% Saline Lock 10 Ml Syringe) 5 - 15 ml IV UD PRN PRN Reason: SALINE FLUSH Last Admin: 04/08/20 09:41 Dose: 10 ml Documented by: Trazodone HCl (Trazodone 100 Mg Tablet) 100 mg PO QHS PRN PRN PRN Reason: INSOMNIA Medical Necessity - Tobacco Use Smoking Status: Current every day smoker Assessment/Plan All Active Problems Transaminitis (Acute) Substance abuse (Acute) (Acute) Subchorionic hematoma in first trimester (Acute) Heroin abuse affecting (Acute) Active labor at term (Acute) SROM (spontaneous rupture of membranes) (Acute) Breech presentation (Acute) Social isolation (Acute) Cellulitis (Acute) POD#4 s/p primary cs breech, polysubstance abuse 1) Continue buprenorphine 2mg SL q 8hrs per medicine 2) Vitals stable 3) Discharge to hotel status today 4) Will need outpatient program for poly substance abuse, planning to stay with parents after discharge 5) Discussed motrin/tylenol for discharge pain 6) routine discharge instructions reviewed 7) follow-up in 1 week for incision check in 2 weeks for visit 8) Declines LARC
--- NOTE | 2020-04-11 10:00 | DCINST_ITS ---
Discharge Diet: No Restrictions Discharge Activity: May Not Drive - for 2 weeks or while taking narcotic pain meds., May Shower, May Take a Tub Bath - in 7 days. May resume sexual activity in: 4-6 weeks Weight Bearing Status: Full weight bearing Lifting Restrictions: 20 pounds Additional Activity Instructions:: Nothing in the vagina for 4-6 weeks. You may return to work/school in 6 weeks. Call your doctor if your incision/area has: Continuous Slow Oozing, Sudden Increased Bleeding, Increased Pain/ Swelling, Increased Redness, Foul Smelling Discharge Call your doctor if you observe: Fever of 101 or Higher, Inability to urinate, Inability to have a bowel movement, Using more than one pad per hour, Shortness of breath, Chest pain, Increased palpitations (irregular heartbeat), Calf discomfort, Uncontrolled pain Suture Line Care: Avoid Pulling/Pushing, Avoid Pinching/Bending Remove Dressing in (days):: 7 Cleanse incision/area with: Soap & Water Additional Instructions: If you experience any of the following, contact your healthcare provider. * Bleeding that soaks a pad every hour for 2 hours * Fever 100.4 or higher * Unrelieved incision or abdominal pain * Swelling, redness, discharge or bleeding from your incision or episiotomy site * Your incision begins to separate * Problems urinating (including inability to urinate or burning while urinating). * Visual changes * Severe headache * Flu-like symptoms * Pain or redness in one of both of your breasts * Pain, warmth, tenderness or swelling in your legs, especially the calf area * Frequent nausea and vomiting * Symptoms of depression or anxiety If you experience any of the following, call 911 or go to the nearest Emergency Room. * Chest pain * Problems breathing * Seizure activity * Partial or complete paralysis of a body part, slurred speech, weakness or drooping of the face, or a sudden inability to walk or hold your balance Allergies/Adverse Reactions: Allergies No Known Allergies Allergy (Verified 04/07/20 05:05) Medications to take at Discharge Pnv,Calcium 72/Iron/Folic Acid [ Plus Tablet] 1 ea PO DAILY 11/25/19 Acetaminophen [Tylenol] 1,000 mg PO Q6 #0 tab 04/11/20 Ibuprofen [Motrin] 600 mg PO Q6H 7 Days #30 tab 04/11/20 Senna/Docusate Sodium [Senokot-S] 1 - 2 tab PO DAILY 14 Days #30 tab 04/11/20 The following prescriptions were given: Ibuprofen [Motrin] 600 mg PO Q6H 7 Days #30 tab Transmission Status: Pending to [facility] Senna/Docusate Sodium [Senokot-S] 1 - 2 tab PO DAILY 14 Days #30 tab Transmission Status: Sent to [facility] Follow-Up: Call to make an appointment with your doctor for an incision check in 1-2 weeks. You will also need a 6 week post- follow up appointment. Test results from this visit will be discussed in further detail at your follow- up appointment, if applicable. Please Follow Up With: Nemo Peace MD Primary Care Physician: Care Physician,No Primary [Primary Care Provider] -
--- NOTE | 2020-04-11 10:09 | PCM.DC.SUM ---
Discharge Date and Diagnosis - Problem List Patient Problems: Active and Suspected Problems Transaminitis (Acute) Substance abuse (Acute) (Acute) Subchorionic hematoma in first trimester (Acute) Heroin abuse affecting (Acute) Active labor at term (Acute) SROM (spontaneous rupture of membranes) (Acute) Breech presentation (Acute) Social isolation (Acute) Cellulitis (Acute) Date of Admission: 04/02/16 Date of Discharge: 04/11/20 - Primary Discharge Diagnosis Acute Problems: Active Problems Transaminitis (Acute) Substance abuse (Acute) (Acute) Subchorionic hematoma in first trimester (Acute) Heroin abuse affecting (Acute) Active labor at term (Acute) SROM (spontaneous rupture of membranes) (Acute) Breech presentation (Acute) Social isolation (Acute) Cellulitis (Acute) - Secondary Discharge Diagnosis Chronic Problems: Chronic Problems Marijuana use (Chronic) Methamphetamine abuse (Chronic) History of traumatic brain injury (Chronic) Custody issue (Chronic) History of depression (Chronic) Hepatitis C (Chronic) History of pelvic fracture (Chronic) IVDU (intravenous drug user) (Chronic) Hospital Course and Treatment Consultations 04/07/20 06:16 Consult: Anesthesia Routine Comment: Reason For Exam: Labor 04/07/20 09:43 Consult: Mental Health/Crisis Routine Reason for consult?: maternal drug use in Date Notified:: 04/07/20 Time Notified:: 10:50 Operations: None Summary of Care Provided: The patient is a 29 year old presented on 04/07/20 at 37 weeks of gestation who presented to labor and delivery with spontaneous rupture of membrane. Upon presentation found to have presentation in breech position. Decision made for primary LTCS by . Patient has history of polysubstance abuse with opioid and methamphetamine use. Patient last heroin use was one day prior to admission to hospital. The hospitalist service was consulted to assist with management of patient opioid dependence and management of withdrawal. Started on Subutex for management. donor services team leader consultation for plans post discharge for rehab and care of baby. Discharge on POD #4 to hotel status. Hospital service to manage discharge medication for substance abuse disorder. Patient Problems: Active and Suspected Problems Transaminitis (Acute) Substance abuse (Acute) (Acute) Subchorionic hematoma in first trimester (Acute) Heroin abuse affecting (Acute) Active labor at term (Acute) SROM (spontaneous rupture of membranes) (Acute) Breech presentation (Acute) Social isolation (Acute) Cellulitis (Acute) - Physical Exam Vitals/I&O's: Vital Signs Temp Pulse Resp BP Pulse Ox 97 F L 65 16 114/82 H 99 04/11/20 08:00 04/11/20 08:00 04/11/20 08:00 04/11/20 08:00 04/10/20 16:00 Oxygen Delivery Method Room Air Weight: 185 lb Body Mass Index (BMI) 28.1 Microbiology Past 72 Hours 04/07/20 Unknown Genital vaginal Group B Streptococcus Culture - Final Group B Beta Streptococcus is not isolated. Current Medications Acetaminophen (Acetaminophen 500 Mg Tablet) 1,000 mg PO Q6 STEFANY Last Admin: 04/11/20 06:10 Dose: 1,000 mg Documented by: Bisacodyl (Bisacodyl 10 Mg Suppository) 10 mg RECTAL UD PRN PRN Reason: If no BM Buprenorphine HCl (Buprenorphine Hcl 2 Mg Tab.Subl) 2 mg SL Q12H STEFANY; Taper Stop: 04/11/20 10:29 Last Admin: 04/10/20 22:43 Dose: 2 mg Documented by: Clonidine (Clonidine Hcl 0.1 Mg Tablet) 0.1 mg PO Q8H PRN PRN PRN Reason: RESTLESSNESS Dicyclomine HCl (Dicyclomine 10 Mg Capsule) 20 mg PO Q6H PRN PRN PRN Reason: Abdominal Discomfort Enoxaparin Sodium (Enoxaparin 40 Mg/0.4 Ml Syringe) 40 mg SC DAILY [facility] Last Admin: 04/10/20 10:59 Dose: 40 mg Documented by: Gabapentin (Gabapentin 300 Mg Capsule) 300 mg PO Q8H PRN PRN PRN Reason: moderate to severe anxiety Hydrocortisone (Hydrocortisone 2.5% Crm) 1 applic TOPICAL TID PRN PRN; Protocol PRN Reason: Discomfort Hydroxyzine Pamoate (Hydroxyzine Melinda 25 Mg Capsule) 50 mg PO Q6H PRN PRN PRN Reason: mild anxiety Ibuprofen (Ibuprofen 600 Mg Tablet) 600 mg PO Q6H STEFANY Loperamide HCl (Loperamide 2 Mg Capsule) 2 mg PO Q4H PRN PRN PRN Reason: LOOSE STOOLS Methocarbamol (Methocarbamol 750 Mg Tablet) 1,500 mg PO Q6H PRN PRN PRN Reason: MUSCLE SPASM Methylergonovine Maleate (Methylergonovine 0.2 Mg/Ml Ampul) 0.2 mg IM X1 PRN PRN Reason: Uterine Atony Nicotine (Nicotine 21 Mg Patch) 21 mg TD DAILY [facility] Last Admin: 04/10/20 16:58 Dose: 21 mg Documented by: Ondansetron HCl (Ondansetron 4 Mg/2 Ml Vial) 4 mg IV Q4H PRN PRN PRN Reason: Nausea Ondansetron HCl (Ondansetron 8 Mg Tablet) 8 mg PO Q8H PRN PRN PRN Reason: NAUSEA Oxycodone HCl (Oxycodone 5 Mg Tablet) 5 - 10 mg PO Q4H PRN PRN PRN Reason: Pain Score 6-10 Last Admin: 04/07/20 23:40 Dose: 10 mg Documented by: Prochlorperazine Edisylate (Prochlorperazine 10 Mg/2 Ml Vial) 10 mg IV Q6H PRN PRN PRN Reason: NAUSEA Senna/Docusate Sodium (Senna/Docusate Sodium 1 Tablet) 1 - 2 tablet PO DAILY [facility] Last Admin: 04/10/20 10:58 Dose: 2 tablet Documented by: Simethicone (Simethicone 80 Mg Tablet) 80 mg PO PCHS PRN PRN Reason: Indigestion/stomach pain Last Admin: 04/07/20 19:00 Dose: 80 mg Documented by: Sodium Chloride (0.9% Saline Lock 10 Ml Syringe) 5 - 15 ml IV UD PRN PRN Reason: SALINE FLUSH Last Admin: 04/08/20 09:41 Dose: 10 ml Documented by: Trazodone HCl (Trazodone 100 Mg Tablet) 100 mg PO QHS PRN PRN PRN Reason: INSOMNIA Discharge Diet: No Restrictions Discharge Activity: May Not Drive - for 2 weeks or while taking narcotic pain meds., May Shower, May Take a Tub Bath - in 7 days. May resume sexual activity in: 4-6 weeks Weight Bearing Status: Full weight bearing Additional Activity Instructions:: Nothing in the vagina for 4-6 weeks. You may return to work/school in 6 weeks. Call your doctor if your incision/area has: Continuous Slow Oozing, Sudden Increased Bleeding, Increased Pain/ Swelling, Increased Redness, Foul Smelling Discharge Call your doctor if you observe: Fever of 101 or Higher, Inability to urinate, Inability to have a bowel movement, Using more than one pad per hour, Shortness of breath, Chest pain, Increased palpitations (irregular heartbeat), Calf discomfort, Uncontrolled pain Suture Line Care: Avoid Pulling/Pushing, Avoid Pinching/Bending Remove Dressing in (days):: 7 Cleanse incision/area with: Soap & Water Home Medications: Medications to take at Discharge Pnv,Calcium 72/Iron/Folic Acid [ Plus Tablet] 1 ea PO DAILY 11/25/19 Acetaminophen [Tylenol] 1,000 mg PO Q6 #0 tab 04/11/20 Ibuprofen [Motrin] 600 mg PO Q6H 7 Days #30 tab 04/11/20 Senna/Docusate Sodium [Senokot-S] 1 - 2 tab PO DAILY 14 Days #30 tab 04/11/20 Following Prescriptions Were Given to Patient: Ibuprofen [Motrin] 600 mg PO Q6H 7 Days #30 tab Transmission Status: Received by [facility] Senna/Docusate Sodium [Senokot-S] 1 - 2 tab PO DAILY 14 Days #30 tab Transmission Status: Received by [facility] Primary Care Physician: Care Physician,No Primary [Primary Care Provider] - Please Follow Up With: Nemo Peace MD Medical Necessity - Tobacco Use Smoking Status: Current every day smoker Meaningful Use Info Meaningful Use Diagnoses (Choose all that apply): None applicable
[2020-04-11] MEDS: Enoxaparin 40 MG/0.4 ML Syringe SC (11:08)
[2020-04-11] MEDS: Senna/Docusate Sodium 1 Tablet PO (11:08)
[2020-04-11 13:51] VITALS: BP 112/82; PULSE 65; RESP 16; TEMP 36.1
--- NOTE | 2020-04-11 16:30 | CASEMGMT ---
Social Work Labor and Delivery Unit Report made to [facility] due to substance exposed in utero. Spoke with Christal Galdamez at [phone], extension [phone]. Brief maternal and histories provided. Reported other concerns and risk factors for this family. Reported concern for the reported father of baby (FOB) having substance use issues. Received call from Christal at [facility]. Per Christal, the referral is being sent to [facility] due to MOB's stated plan to reside in [facility] once leaving the hospital. Christal reports if [facility] does not accept the referral, then [facility] will open the case for investigation. Spoke with Alyce at [facility] and able to obtain MOB a phone interview with Alyce at [facility] for 1400 today. FOB verbally agrees to a referral. Able to get FOB an in-person assessment for . at 1400. Wrote out information for the FOB and reinforced that if for some reason the FOB is not going to be able to make it, then it is the FOB's responsibility to call and cancel. Provided MOB with resource lists and information on depression and anxiety for home going. Received report from nursing staff that baby being transferred to the [facility] due to concerns for seizure activity. This technical writer and editor also provides social work services to the [facility], for continuity of care of families admitted to the [facility]. Spoke with MOB and FOB of this. Shortly after the baby was admitted to the [facility], this technical writer and editor learned baby needed to be transferred to [facility]. MOB reported her grandparents would provided transportation. Received call from Shahana Galeano at [facility]. Updated Shahana about baby's transfer into the [facility] Shahana provided her direct number, , to call when meconium drug screen results come back for this baby. No other services requested or indicated at this time, other than monitoring for drug screen results. Further social work intervention to be completed via the [facility]'s unit (hand off given to [facility] social work). -JOSE Anguiano, SURVEY ASSOCIATE
== END 2020-04-11 14:30 | disposition home or self-care (01) | DRG 540 ==
LOC: WPOUT 06:18 → WP 06:18
PROVIDERS: Admitting Provider Advanced Practice Midwife; Visit Provider Obstetrics & Gynecology
DX: O64.1XX0 Obstructed labor due to breech presentation, not applicable or unspecified (principal); Z20.822 Contact with and (suspected) exposure to COVID-19; O99.324 Drug use complicating childbirth; F11.20 Opioid dependence, uncomplicated; F15.10 Other stimulant abuse, uncomplicated; F12.90 Cannabis use, unspecified, uncomplicated; O99.334 Smoking (tobacco) complicating childbirth; F17.200 Nicotine dependence, unspecified, uncomplicated; K21.9 Gastro-esophageal reflux disease without esophagitis; O77.0 Labor and delivery complicated by meconium in amniotic fluid; O98.42 Viral hepatitis complicating childbirth; B18.2 Chronic viral hepatitis C; Z60.4 Social exclusion and rejection; Z87.820 Personal history of traumatic brain injury; Z3A.37 37 weeks gestation of pregnancy; Z37.0 Single live birth
CPT/HCPCS: 59025; 59050; 80053; 80307; 81002; 84112; 85025; 85027; 86850; 86900; 86901; 87081; 87426; 87522; 87653; 99218; J7120; A4216; G0378

== ENCOUNTER 2021-08-30 23:19 | Emergency (ER) | payer MEDICAID, SELFPAY ==
[2021-08-30 23:19] VITALS: BP 153/103; PULSE 105; RESP 22; TEMP 36.8; O2SAT 99; BMI 24.1
[2021-08-30 23:53] VITALS: BP 120/81; PULSE 96; RESP 18; O2SAT 98
--- NOTE | 2021-08-30 23:58 | EX.ED.SAOD ---
HPI History of Present Illness Chief Complaint: Overdose Narrative Narrative: 30-year-old female presenting after overdose on heroin. She admits to snorting it. She is not sure how much. She was given Narcan by EMS and has been awake and alert. Currently denies any symptoms except for she is thirsty. She states that she did rehab once and states he has been clean for a while. She currently states that she does not think she needs to detox again. PFSH PFSH Home Medications Lamictal 75 mg DAILY 08/30/21 [History Last Taken Unknown] Allergy/AdvReac Type Severity Reaction Status Date / Time No Known Allergies Allergy Verified 04/07/20 05:05 Social History Smoking Status: Current every day smoker tobacco type: pipe ROS ROS ED Constitutional Constitutional ED: Denies chills or fever(s) Eyes Eyes: Denies change in vision or diplopia ENT ENT ED: Denies rhinorrhea or sore throat Cardiovascular Cardiovascular: Denies chest pain or palpitations Respiratory/Chest Respiratory/Chest: Denies cough, dyspnea or dyspnea on exertion Gastrointestinal Gastrointestinal: Denies abdominal pain, constipation or nausea Genitourinary Genitourinary ED: Denies dysuria Musculoskeletal Musculoskeletal: Denies arthralgias or back pain Integumentary Denies abscess Neurologic Neurologic: Denies headache(s) or paresthesias Psychiatric Psychiatric: Denies anxiety or depression EXAM Physical Exam Const Vital Signs: 08/30/21 23:19 08/30/21 23:53 Temperature 98.2 F Temperature Source Temporal Pulse Rate 105 H 96 Respiratory Rate 22 H 18 Blood Pressure 153/103 H 120/81 H Blood Pressure Mean 119 94 Pulse Ox 99 98 Oxygen Delivery Method Room Air Room Air Positive well nourished General Appearance ED: NAD; Negative for pallor HEENT Reports moist mucous membranes Eyes PERRL and EOMs intact bilaterally Chest Wall inspection of chest normal Resp normal respiratory effort and clear to auscultation bilaterally Cardio regular rate and regular rhythm Extremity General Extremety ED: Yes edema; Negative for tenderness General Extremity: edema Neuro oriented x3 and CN's II-XII intact bilaterally Speech: speech normal Motor Exam: strength 5/5 throughout Psych mental status grossly normal Mood & Affect: tearful Skin General Skin Exam: Negative for jaundice or pallor MDM MDM MDM Narrative Medical decision making narrative: Patient seen and evaluated for heroin overdose. She is awake and alert. She does not have any complaints. She requested charges that she can call for a ride. I do not believe she needs any lab work or imaging. She declines the need for detox. Patient has not required any more Narcan since she has been here. I believe she safe for discharge. Impression: 1. Heroin overdose Discharge Plan Triage Chief Complaint: Overdose ED Provider: Keny Trammell Dx/Rx/DC Orders Prescriptions: No Action Lamictal 75 mg DAILY Primary Care Provider: Care Physician,No Primary Referrals: Care Physician,No Primary [Primary Care Provider] -
[2021-08-31 00:10] VITALS: BP 124/76; PULSE 74; RESP 17; O2SAT 98
== END 2021-08-31 00:12 | disposition home or self-care (01) ==
PROVIDERS: Emergency Provider Student in an Organized Health Care Education/Training Program; Visit Provider Student in an Organized Health Care Education/Training Program
DX: T40.1X4A Poisoning by heroin, undetermined, initial encounter (principal); F17.290 Nicotine dependence, other tobacco product, uncomplicated; Z79.899 Other long term (current) drug therapy
CPT/HCPCS: 99284

== ENCOUNTER 2024-03-19 00:02 | Emergency (ER) | payer MEDICAID, SELFPAY ==
[2024-03-19 00:04] VITALS: BP 151/103; PULSE 111; RESP 18; TEMP 36.8; O2SAT 100; BMI 26.2
[2024-03-19 00:06] VITALS: BP 151/103; PULSE 113; RESP 18; TEMP 36.8; O2SAT 99
--- NOTE | 2024-03-19 00:23 | EDS_ITS ---
HPI History of Present Illness Chief Complaint: Lower Extremity Injury Detail of Chief Complaint: Abscess distal posterior right leg due to IV drug use/skin popping Informant: patient Onset/Context/Timing Onset: Days (First noted 5 days ago.) Context: Gradual Onset Timing: Continuous Quality: Mucopurulent drainage with abscess and surrounding cellulitis posterior dis Location: Distal right lower extremity Current Severity: Moderate Maximum Severity: Moderate Worsened by: Drug use Relieved by: Nothing Associated Symptoms Associated Symptoms: No constitutional symptoms Narrative Narrative: patient is a 33-year-old female. She has history of drug use i.e. methamphetamine and fentanyl. She noted a rash approximate 5 days ago posterior distal right lower extremity. She now has an abscess. There is mild drainage. She denies pain behind her knee or in her right groin. She denies fever or chills. She denies night sweats. She denies history medic fever, heart murmur, SBE. Patient is presently on control pills. She is not . Prior similar symptoms: Yes Recent Illness/Hospitalization: No PFSH PFSH Home Medications ?Medication ?Instructions ?Recorded ?Last Taken ?Type NK 03/19/24 Unknown History Allergy/AdvReac Type Severity Reaction Status Date / Time No Known Allergies Allergy Verified 03/19/24 00:08 Social History (Updated 03/19/24 @ 00:[address] Laurent Zhang MD) housing: homeless Smoking Status: Current every day smoker tobacco type: pipe ROS ROS ED Constitutional Constitutional ED: Denies chills, fever(s), subjective or sweats Eyes Eyes: Denies blurry vision or change in vision Cardiovascular Cardiovascular: Denies chest pain, palpitations or racing heartbeat Respiratory/Chest Respiratory/Chest: Denies dyspnea or dyspnea on exertion Gastrointestinal Gastrointestinal: Denies nausea or vomiting Musculoskeletal Musculoskeletal: Denies arthralgias or myalgias Integumentary Reports abscess and rash Neurologic Neurologic: Denies weakness Hematologic/Lymphatic Hematologic/Lymphatic: Reports systems reviewed and no addt'l complaints, except as documented EXAM Physical Exam Const Vital Signs: 03/19/24 00:04 03/19/24 00:06 03/19/24 01:06 Temperature 98.2 F 98.2 F 98.1 F Temperature Source Axillary Axillary Oral Pulse Rate 111 H 113 H 89 Respiratory Rate 18 18 18 Blood Pressure 151/103 H 151/103 H 126/84 H Blood Pressure Mean 119 119 98 Pulse Ox 100 99 98 Oxygen Delivery Method Room Air Room Air Room Air Positive well nourished and well developed General Appearance ED: well developed and NAD; Negative for cyanotic, diaphoretic or pallor HEENT Reports moist mucous membranes HEENT Narrative: Head is atraumatic and normocephalic. Ears normal. Eyes PERRL and EOMs intact bilaterally General Eye ED: Negative for pale conjunctiva or scleral icterus Neck no lymphadenopathy, supple and no JVD Chest Wall inspection of chest normal and palpation of chest normal Resp normal respiratory effort and clear to auscultation bilaterally Cardio regular rhythm, S1 normal heart sound, S2 normal heart sound and no murmurs Rate: tachycardic GI normal to inspection, nondistended, normoactive bowel sounds, non-tender and non-distended Extremity Negative for normal to inspection Extremity Narrative: Cellulitis abscess distal lower extremity. Neuro oriented x3 and CN's II-XII intact bilaterally Sensorium / Orientation: alert Psych mental status grossly normal Skin No no wounds and skin turgor normal Skin Narrative: Cellulitis abscess posterior right lower extremity. General Skin Exam: elasticity normal; Negative for jaundice or pallor MDM MDM MDM Narrative Medical decision making narrative: Will consent patient for I&D. She was treated with trimethyl sulfa Proctosol double strength and cephalexin for strep and staph coverage. Vitals were noted and remarkable for tachycardia and elevated blood pressure. Since she has no systemic findings there is no lymphadenopathy in my opinion this could be treated with I&D and oral antibiotics as an outpatient. History & Record Review Additional record(s) reviewed:: Prior inpatient record (Patient was seen for transaminitis, substance abuse, , subchorionic hematoma and first trimester and active labor at term March 2020 discharge summary and delivery note were reviewed.) and Prior ED visit (Heroin overdose August 30, 2021.) Procedures Other Procedures Procedure(s): Patient was prepped draped sterile manner. The area was anest hetized for local filtration and field block. Patient had additional lidocaine placed after waiting 15 to 30 minutes. Incision was made with a 10 blade. Incision was 2 cm in length. There was purulent. The was expressed from the area. Blunt dissection was undertaken with additional purulent material. Wick was placed to facilitate further drainage. Patient received her first dose of cephalexin and Bactrim in the emergency department. Discharge Plan Triage Chief Complaint: Lower Extremity Injury ED Provider: Laurent Zhang Dx/Rx/DC Orders Clinical Impression: Cellulitis and abscess of right leg, IVDU (intravenous drug user), Substance abuse, Sinus tachycardia Instructions: ED Abscess Incision And Drainage Prescriptions: No Action NK Primary Care Provider: Mary Ann Chen NP Referrals: Care Physician,No Primary [Non-Staff] - Doctor,Your [Non-Staff] - 2 Days for wound check Activity Restrictions/Additional Instructions: 1. Take antibiotics till gone. 2. If you develop temperature greater than 100, shaking chills or the redness spreads over the next 24 hours return to the emergency department 3. Contact your doctor to have wound check in 2 to 3 days and wick removed. The name of your doctor is located on your insurance card. Print Language: Swedish Disposition Disposition: Home, Self Care
[2024-03-19] MEDS: Lidocaine 1% (20 ml mdv) 20 ML Vial INFILT (00:32)
[2024-03-19] MEDS: Smz/Tmp Ds Tablet 1 TABLET PO (00:32)
[2024-03-19] MEDS: Cephalexin 500 MG Capsule PO (00:32)
[2024-03-19 01:06] VITALS: BP 126/84; PULSE 89; RESP 18; TEMP 36.7; O2SAT 98
[2024-03-19 02:02] VITALS: BP 128/81; PULSE 86; PULSE 96; RESP 16; TEMP 36.6; O2SAT 99
== END 2024-03-19 02:18 | disposition home or self-care (01) ==
PROVIDERS: Emergency Provider Emergency Medicine; PCP Registered Nurse; Visit Provider Emergency Medicine
DX: L02.415 Cutaneous abscess of right lower limb (principal); F19.10 Other psychoactive substance abuse, uncomplicated; L03.115 Cellulitis of right lower limb; R00.0 Tachycardia, unspecified; Z59.00 Homelessness unspecified; R03.0 Elevated blood-pressure reading, without diagnosis of hypertension; Z79.3 Long term (current) use of hormonal contraceptives; F17.290 Nicotine dependence, other tobacco product, uncomplicated
CPT/HCPCS: 10060; 99283

== ENCOUNTER 2024-03-25 09:17 | Emergency (ER) | payer MEDICAID, SELFPAY ==
[2024-03-25 09:17] VITALS: BP 128/96; PULSE 108; RESP 18; TEMP 36.6; O2SAT 98; BMI 27.0
--- NOTE | 2024-03-25 10:13 | EX.ED.DYSGE1 ---
HPI History of Present Illness Chief Complaint: Wound Informant: patient Narrative Narrative: 33-year-old female presented here on 03/19/2024 hide incision and drainage of her right lower leg abscess. Currently is on Bactrim and Keflex. States it is getting much better. She wanted her packing removed. Also today at home she tripped and fell injured her right thumb as she went down she had a TV with her hand. Denies any other injuries. Complaining of pain in her right thumb MCP joint. No prior history. She is right-hand dominant. Denies other injuries or complaints. Prior similar symptoms: No Recent Illness/Hospitalization: No PFSH PFSH Home Medications ?Medication ?Instructions ?Recorded ?Last Taken ?Type cephalexin 500 mg capsule 500 mg PO Q6 #28 CAPSULES 03/19/24 Unknown Rx sulfamethoxazole 800 1 tab PO BID #14 TABLETS 03/19/24 Unknown Rx mg-trimethoprim 160 mg tablet Allergy/AdvReac Type Severity Reaction Status Date / Time No Known Allergies Allergy Verified 03/25/24 09:18 Social History housing: homeless Smoking Status: Current every day smoker tobacco type: pipe ROS ROS ED ROS Narrative Denies recent illness. Constitutional Constitutional ED: Denies fever(s) Eyes Eyes: Denies blurry vision ENT ENT ED: Denies ear pain Cardiovascular Cardiovascular: Denies chest pain Respiratory/Chest Respiratory/Chest: Denies cough or dyspnea Gastrointestinal Gastrointestinal: Denies abdominal pain Genitourinary Genitourinary ED: Denies dysuria Musculoskeletal Musculoskeletal: Denies arthralgias Integumentary Reports abscess Neurologic Neurologic: Denies headache(s) Psychiatric Psychiatric: Denies anxiety Endocrine Endocrinology: Denies cold intolerance Hematologic/Lymphatic Hematologic/Lymphatic: Reports none Allergic/Immunologic Allergic/Immunologic ED: Denies mouth swelling, tongue swelling or urticaria EXAM Physical Exam Narrative Exam Narrative: Well-appearing 33-year-old female. Vital signs are stable afebrile. H EENT exam pupils round react light. No trauma to her face or scalp. Nontender. No laceration. Neck nontender. Back nontender. Full range of motion to her neck. Lungs clear to auscultation bilaterally. Heart regular rhythm rate about 100 no murmur. Chest wall ribs nontender. Abdomen soft nontender. Pelvic girdle intact. Moving all 4 extremities. No gross deformity. Right shoulder elbow and wrist are nontender normal range of motion. Right thumb has tenderness to the right MCP. She has full flexion extension of the thumb and all digits of the right hand. The rest of the hand is nontender. Left upper extremity left lower extremity are unremarkable. Right lower leg she has a prior incision and drainage of an abscess several inches above the medial malleolus. It appears to be healing nicely. I removed several inches of packing gauze. She states the area looks much better. She has a healing wound. Currently there is no acute cellulitis. No lymphangitic streaking or inguinal lymphadenopathy. Patient is awake and alert. Const Vital Signs: 03/25/24 09:17 Temperature 97.9 F Temperature Source Temporal Pulse Rate 108 H Respiratory Rate 18 Blood Pressure 128/96 H Blood Pressure Mean 106 Pulse Ox 98 Oxygen Delivery Method Room Air Positive well nourished and well developed; Negative for obese, cachectic, contractures or unkempt General Appearance ED: well developed and NAD; Negative for unkempt, cachectic, contractures, cyanotic, diaphoretic or pallor Nutritional Appearance: Negative for cachectic or obese HEENT Reports moist mucous membranes Negative for trauma or tenderness Eyes PERRL and EOMs intact bilaterally Neck no lymphadenopathy, supple and no JVD Chest Wall inspection of chest normal and palpation of chest normal Resp normal respiratory effort and clear to auscultation bilaterally Effort and Inspection: Negative for retractions Auscultation: Negative for rales, rhonchi, wheezes or diminished lung sounds Cardio regular rate, regular rhythm, S1 normal heart sound, S2 normal heart sound and no murmurs Palpation: Negative for palpable S3 or palpable S4 Rate: Negative for bradycardia or tachycardic Rhythm: Negative for abnormal rhythm GI normal to inspection, nondistended, normoactive bowel sounds, non-tender, non-distended and no masses Palpation: soft; Negative for tender, guarding or rebound tenderness present Back/Spine no CVA tenderness General Back: Negative for CVA tenderness Cervical Spine: Negative for cervical spine tenderness Thoracic Spine / Upper Back: Negative for thoracic spinal tenderness or paraspinal muscle tenderness Lumbar Spine / Lower Back: Negative for lumbar spinal tenderness Extremity Negative for normal to inspection Extremity Narrative: Healing incise and drain abscess of right lower medial leg several inches above the medial malleolus. I remove the packing. Currently no cellulitis. No streaking or inguinal lymphadenopathy. Patient states it looks much better than it did a week ago and it was drained. Right hand she has tenderness to her MCP of her right thumb. Has full flexion extension no bony deformity. General Extremety ED: Yes tenderness; Negative for edema General Extremity: Negative for edema Neuro oriented x3 and CN's II-XII intact bilaterally Sensorium / Orientation: Negative for orientation impaired, lethargic or stuporous Motor Exam: strength 5/5 throughout Psych Appearance: Negative for unkempt Skin no rashes or lesions noted and No no wounds Skin Narrative: Healing subcu abscess right lower leg. General Skin Exam: Negative for jaundice or pallor Lesions: No lesion noted Rashes: No rashes noted MDM MDM MDM Narrative Medical decision making narrative: 33-year-old female presents to remove the packing from her right lower leg wound that was incised and drained here a week ago. Currently is on Bactrim and Keflex. It appears to be healing nicely. She also fell today and injured her right thumb which will get an x-ray of the hand. She has tenderness along the metacarpal phalangeal joint of the right thumb. She did not want a thing for pain. Repeat exam patient doing well at 11:51 AM. We went over x-ray. Should be discharged home. Ice to the area. Motrin. Continue her antibiotic and cleaning of the right lower leg wound. History & Record Review Discussion w/independent historian: Patient Additional record(s) reviewed:: Prior inpatient record, Prior outpatient record, Prior ED visit and Prior labs Radiography Diagnostic Testing: Clinical Impression(s) from Imaging Studies Hand X-Ray 03/25/24 10:20 IMPRESSION: No acute abnormality is seen. Electronically Signed: Tommy Puckett MD at 10:38 EST , Right hand x-ray, 3 views, interpreted by myself and the radiologist shows no acute abnormality. Prior fracture of the distal radius with orthopedic hardware. I did go over the x-rays with the patient. Discharge Plan Triage Chief Complaint: Wound ED Provider: Dirk Chacon Dx/Rx/DC Orders Clinical Impression: Fall, Contusion of thumb, right, Visit for wound check Instructions: ED Soft Tissue Contusion Prescriptions: No Action sulfamethoxazole-trimethoprim 800-160 mg tablet 1 tab PO BID Qty: 14 0RF cephalexin 500 mg capsule 500 mg PO Q6 Qty: 28 0RF Primary Care Provider: Mary Ann Chen NP Referrals: Mary Ann Chen NP, [facility] [Primary Care Provider] - 1 Week if not improving Activity Restrictions/Additional Instructions: Motrin and Tylenol for the thumb pain. Ice and elevate. X-ray look good. Continue your antibiotics for your leg wound. Continue to clean it daily. Print Language: Romanian Disposition Disposition: Home, Self Care
--- NOTE | 2024-03-25 10:20 | RAD_ITS ---
STUDY: X-RAY - RIGHT HAND REASON FOR EXAM: Female, 33 years old. Fell and r-thumb pain TECHNIQUE: 3 view(s) of the hand. COMPARISON: None. FINDINGS: Normal radiocarpal articulation. Normal distal radioulnar joint. Status post ORIF of the distal radial fracture. Normal visualized carpal bones. Normal carpal articulations Normal carpometacarpal articulation of the thumb. Normal second through fifth carpometacarpal joints. Normal metacarpi. Normal metacarpophalangeal joint of the thumb. Normal interphalangeal joint of the thumb. Normal proximal and distal phalanges of the thumb. Normal metacarpophalangeal joints of the second through fifth fingers. Normal proximal and distal interphalangeal joints of the second through fifth fingers. Normal phalanges of the second through fifth fingers. The soft tissue structures are unremarkable. RAD/Hand Min 3 Views IMPRESSION: No acute abnormality is seen. Electronically Signed: Tommy Puckett MD at 10:38 EST ,
== END 2024-03-25 12:07 | disposition home or self-care (01) ==
PROVIDERS: Emergency Provider Emergency Medicine; PCP Registered Nurse; Visit Provider Emergency Medicine
DX: Z48.01 Encounter for change or removal of surgical wound dressing (principal); S60.011A Contusion of right thumb without damage to nail, initial encounter; W18.09XA Striking against other object with subsequent fall, initial encounter; Y92.009 Unspecified place in unspecified non-institutional (private) residence as the place of occurrence of the external cause; Z59.00 Homelessness unspecified; F17.290 Nicotine dependence, other tobacco product, uncomplicated
CPT/HCPCS: 10061